=== PATIENT | female | born 1995 | race Caucasian/White ===

== ENCOUNTER → 2022-10-08 | Outpatient (CLI) | payer BC | END | disposition home or self-care (01) | LOC: LABWHC1 08:52 | PROVIDERS: ATTEND Obstetrics & Gynecology | DX: O03.9 Complete or unspecified spontaneous abortion without complication (principal); Z3A.00 Weeks of gestation of pregnancy not specified | CPT/HCPCS: 36415; 84702 ==

== ENCOUNTER 2023-06-24 15:27 | Outpatient (CLI) | payer BC ==
[2023-06-24 17:16] VITALS: BP 138/88; PULSE 75; RESP 18; TEMP 97.4
--- NOTE | 2023-07-04 07:11 | P.MSEPDOC ---
Presenting Problems - Arrival Data Date of Arrival on Unit: 06/24/23 Time of Arrival on Unit: 15:30 Mode of Transport: Ambulatory - Complaint OB-Reason for Admission/Chief Complaint: Possible Onset of Labor Comment: Pt states contrx started this am. Every 4 minutes while in route to hospital. Medical History - Information : 2 Para: 0 Term: 0 : 0 Abortions: Spontaneous or Elective: 1 Number of Living Children: 0 - Gestational Age Gestational Age by CHRISTIAN (wks/days): 38 Weeks and 0 Days Review of Systems - Review of Systems Constitutional: No problems Breast: No problems ENT: No problems Cardiovascular: No problems Respiratory: No problems Gastrointestinal: No problems Genitourinary: No problems Musculoskeletal: No problems Neurological: No problems Skin: No problems Vital Signs - Temperature Temperature: 97.4 F Temperature Source: Temporal Artery Scan - Pulse Right Brachial Pulse Rate: 75 Pulse Assessment Method: Automatic Cuff - Respirations Respiratory Rate: 18 Oxygen Delivery Method: Room Air O2 Sat by Pulse Oximetry: 100 - Blood Pressure Right Arm Blood Pressure: 138/88 Blood Pressure Mean: 104 Blood Pressure Source: Automatic Cuff Medical Screen Scoring - Cervical Exam Dilation (cm): 1 Effacement (%): 60 Station: -2 Membranes: Intact - Uterine Contractions Intensity: Mild Resting: Soft to palpation - Assessment - Baby A Baseline FHR: 125 Heart Rate - NICHD Category: Category I (Normal) NST: Reactive Physician Notification - Physician Notified Physician Notified Date: 06/24/23 Physician Notified Time: 16:55 Physician: Dr Rogers New Order Received: Yes - Notification Comment Comment: D/C Home Maternal Triage Index - Maternal Triage Index Presenting for scheduled procedure w/no complaint: No - Stat/Priority 1 Stat Priority 1: No - Urgent/Priority 2 Urgent Priority 2: No - Prompt/Priority 3 Prompt Priority 3: No - Non-Urgent/Priority 4 Non-Urgent Priority 4: Yes Criteria Met for Priority 4: Phoned Dr Rogers and orders received to send patient home Disposition - Disposition OB Disposition: Discharge to home Discharge Date: 06/24/23 Discharge Time: 16:50 I agree with the RN Medical Screening Exam: Yes Case reviewed; plan agreed upon as documented in EMR&OBIX.: Yes Diagnosis: FALSE LABOR AT OR AFTER 37 COMPLETED WEEKS OF GESTATION
== END 2023-06-24 16:58 | disposition home or self-care (01) ==
LOC: FBPOP 15:27
PROVIDERS: ATTEND Obstetrics & Gynecology
DX: O47.1 False labor at or after 37 completed weeks of gestation (principal); Z3A.38 38 weeks gestation of pregnancy; Z88.0 Allergy status to penicillin; Z88.1 Allergy status to other antibiotic agents; Z88.8 Allergy status to other drugs, medicaments and biological substances
CPT/HCPCS: 59025; 99213

== ENCOUNTER 2023-07-14 05:48 | Inpatient (IN) | payer BC ==
--- NOTE | 2023-07-13 20:44 | P.HPOB ---
History of Present Illness H&P Date: 07/13/23 Chief Complaint: Induction of labor This is a 28 y.o. female, 2, para 0, with an estimated date of confinement of 07/08/2023, estimated gestational age of 40-6/7 weeks, who presents for induction of labor due to postdates. She complains of irregular contractions. course has been uncomplicated. labs: Hemoglobin-13.2 Blood type-A+ Antibody screen-neg Rubella-immune Toxoplasma-neg RPR-NR HIV-NR Hepatits C-neg Hepatitis B surface antigen-neg GC/Chlamydia/Trich-neg 1 hr. 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 Works as [employer]. Review of Systems Constitutional: Denies chills, Denies fever Eyes: denies blurred vision, denies pain Ears, nose, mouth and throat: Denies headache, Denies sore throat Cardiovascular: Denies chest pain, Denies shortness of breath Respiratory: Denies cough Gastrointestinal: Reports abdominal pain (contractions) Genitourinary: Reports pelvic pain, Reports Musculoskeletal: Reports low back pain Integumentary: Denies pruritus, Denies rash Neurological: Denies numbness, Denies weakness Psychiatric: Denies anxiety, Denies depression Past Medical History Past Medical History: No Reported History History of Any Multi-Drug Resistant Organisms: None Reported Past Surgical History: No Surgical Hx Reported Past Anesthesia/Blood Transfusion Reactions: No Reported Reaction Past Psychological History: No Psychological Hx Reported Smoking Status: Never smoker Past Alcohol Use History: Occasional Past Drug Use History: None Reported - Past Family History Mother Family Medical History: No Reported History Medications and Allergies Home Medications Medication Instructions Recorded Confirmed Type Vit No.180/Iron/Folic 1 each PO 07/13/23 History [ Plus Tablet] Allergies Allergy/AdvReac Type Severity Reaction Status Date / Time azithromycin [From Zithromax] Allergy Rash/Hives Verified 06/24/23 15:42 clindamycin Allergy Rash/Hives Verified 06/24/23 15:42 Penicillins Allergy Rash/Hives Verified 06/24/23 15:42 Exam Osteopathic Statement: *. No significant issues noted on an osteopathic structural exam other than those noted in the History and Physical/Consult. HEENT: within normal limits Heart: regular rate and rhythm Lungs: clear to auscultation bilaterally Abdomen: soft, heart tones: 140's by doppler Cervix: 1.5 cm/60%/-2 Extremities: neg. Chente's Assessment and Plan (1) 40 weeks gestation of Status: Acute Code(s): Z3A.40 - 40 WEEKS GESTATION OF SNOMED Code(s): 33372166 Plan: Proceed with oxytocin induction of labor. Expectant management. Epidural anesthesia if desired.
[2023-07-14] MEDS ORDERED: OXYTOCIN 10 UNIT/ML 1 ML VIAL IM PRN (06:09)
[2023-07-14] MEDS ORDERED: CARBOPROST TROMETHAMINE 250 MCG/ML 1 ML AMP IM PRN (06:09)
[2023-07-14] MEDS ORDERED: LIDOCAINE 0.5% (PF) 5 MG/ML (50 ML SDV) SQ PRN (06:09)
[2023-07-14] MEDS ORDERED: METHYLERGONOVINE 0.2 MG/ML 1 ML AMP IM PRN (06:09)
[2023-07-14] MEDS ORDERED: OXYTOCIN 30 UNITS/500 ML NS 30 UNIT in SALINE 1 500ML.BAG IV SCH ×2 (06:09→15:45)
[2023-07-14] MEDS ORDERED: LIDOCAINE 1% (10MG/ML) FOR IV START INTRADERMA PRN (06:09)
[2023-07-14] MEDS ORDERED: TERBUTALINE 1 MG/ML VIAL SQ PRN (06:09)
[2023-07-14] MEDS ORDERED: miSOPROStoL 200 MCG TAB PO PRN (06:09)
[2023-07-14] MEDS ORDERED: TRANEXAMIC 1,000 MG/100ML-NACL 1,000 MG in EMPTY BAG 1 BAG IV PRN (06:09)
[2023-07-14 06:26] LABS: Basophils % (A) 0 %; Eosinophils # (A) 0.1 k/uL (0-0.7); Eosinophils % (A) 1 %; HCT 38.9 % (34.0-46.0); HGB 12.5 gm/dL (11.4-16.0); Lymphocytes # (A) 2.4 k/uL (1.0-4.8); Lymphocytes % (A) 24 %; MCHC 32.1 g/dL (31.0-37.0); MCV 77.8 fL (80.0-100.0); Mean Platelet Volume 10.4; Monocytes # (A) 0.4 k/uL (0-1.0); Monocytes % (A) 4 %; Neutrophils % (A) 69 %; Platelet Count 225 k/uL (150-450); RDW 15.3 % (11.5-15.5); WBC 10.2 k/uL (3.8-10.6)
[2023-07-14 06:28] VITALS: RESP 16
[2023-07-14] MEDS: OXYTOCIN 30 UNITS/500 ML NS 30 UNIT in SALINE 1 500ML.BAG IV SCH ×2 (06:30→06:45)
[2023-07-14] MEDS: LACTATED RINGERS 1,000 ML IV SCH ×2 (06:30→11:14)
[2023-07-14] MEDS ORDERED: fentaNYL (PF) 50 MCG/ML 5 ML AMP ONE (11:05)
[2023-07-14] MEDS ORDERED: SODIUM CHLORIDE 0.9% 250 ML BAG ONE (11:05)
[2023-07-14] MEDS ORDERED: ROPIVACAINE 5 MG/ML 30 ML VIAL ONE (11:05)
[2023-07-14] MEDS ORDERED: BENZOCAINE/MENTHOL SPRAY 1 GM/SPRAY AEROSOL TOPICAL PRN (15:32)
[2023-07-14] MEDS ORDERED: diphenhydrAMINE 50 MG CAP PO PRN (15:32)
[2023-07-14] MEDS ORDERED: ZOLPIDEM 5 MG TAB PO PRN (15:32)
[2023-07-14] MEDS ORDERED: LANOLIN CREAM 5 GM TUBE TOPICAL PRN (15:32)
[2023-07-14] MEDS ORDERED: SIMETHICONE 80 MG CHEWABLE PO PRN (15:32)
[2023-07-14] MEDS ORDERED: diphenhydrAMINE 25 MG CAP PO PRN (15:32)
--- NOTE | 2023-07-14 16:51 | P.PROBDLV ---
Vaginal Delivery Note - . Vaginal Delivery Note: The patient progressed to complete dilation after oxytocin induction of labor and artificial rupture of membranes with clear fluid noted. She did receive epidural anesthesia while in labor. Once reaching complete, she began pushing. Infant's head came to a crown. With one further push, the 's head delivered across the perineum in the right occiput anterior lie followed by the anterior shoulder. Nose and mouth were bulb suctioned and nuchal cord 2 was reduced around the 's head. With one remaining push, the remainder of the infant easily delivered and was placed on mother's abdomen. Cord was allowed to finish pulsating and then was clamped and cut. A viable male infant was noted with scores of 9 at 1 minute and 9 at 5 minutes and infant weight of 8 lbs. 14 oz. Placenta delivered shortly thereafter, intact, with a three-vessel cord. Uterus contracted fairly well after oxytocin was given and uterine massage was carried out. Inspection of the perineum revealed a second-degree perineal laceration towards the left side of the vagina. This area was anesthetized with 1% lidocaine and then sutured with 30 in 2-0 Vicryl suture in the usual multilayer fashion. Estimated blood loss is approximately 200 mL's. Both mother and infant are in stable condition.
[2023-07-14] MEDS: SENNOSIDES-DOCUSATE SODIUM 1 EACH TAB PO SCH (21:30)
[2023-07-14] MEDS: ACETAMINOPHEN TAB 325 MG TAB PO PRN (21:31)
[2023-07-15] MEDS: IBUPROFEN 600 MG TAB PO PRN ×2 (03:30→19:05)
[2023-07-15 06:03] LABS: Basophils % (A) 0 %; Eosinophils # (A) 0.1 k/uL (0-0.7); Eosinophils % (A) 0 %; HCT 31.4 % (34.0-46.0); HGB 10.3 gm/dL (11.4-16.0); Lymphocytes # (A) 2.2 k/uL (1.0-4.8); Lymphocytes % (A) 18 %; MCH 25.5 pg (25.0-35.0); MCHC 32.8 g/dL (31.0-37.0); MCV 77.7 fL (80.0-100.0); Mean Platelet Volume 10.6; Monocytes # (A) 0.6 k/uL (0-1.0); Monocytes % (A) 5 %; Neutrophils # (A) 9.1 k/uL (1.3-7.7); Neutrophils % (A) 75 %; Platelet Count 171 k/uL (150-450); RBC 4.04 m/uL (3.80-5.40); RDW 15.3 % (11.5-15.5); WBC 12.2 k/uL (3.8-10.6)
[2023-07-15] MEDS: SENNOSIDES-DOCUSATE SODIUM 1 EACH TAB PO SCH ×2 (08:03→19:34)
[2023-07-15] MEDS: ACETAMINOPHEN TAB 325 MG TAB PO PRN (08:03)
--- NOTE | 2023-07-15 08:45 | P.PNOBGVD ---
Subjective - Subjective Principal diagnosis: S/P NVD PPD #1 Interval history: Patient seen and examined. Denies nausea, vomiting, chest pain, shortness of breath or calf pain. Patient reports: Reports appetite normal, Reports voiding normally, Reports pain well controlled, Reports ambulating normally : doing well Objective - Latest Vital Signs Latest vital signs: Vital Signs Temp Pulse Resp BP Pulse Ox 07/15/23 08:00 98.7 F 67 16 117/70 07/15/23 03:44 98.7 F 60 16 106/65 98 07/15/23 00:00 98.8 F 67 16 122/74 98 07/14/23 21:00 99.4 F 93 16 122/84 98 07/14/23 17:30 97.8 F 81 16 132/58 07/14/23 16:55 75 16 133/76 07/14/23 16:25 71 16 134/69 07/14/23 16:10 71 16 128/64 07/14/23 15:55 78 16 129/73 07/14/23 15:40 76 16 129/67 07/14/23 15:25 98.9 F 90 16 132/74 Intake and Output 07/14/23 07/15/23 07/15/23 22:59 06:59 14:59 Output Total 500 Balance -500 Output: Estimated Blood Loss 200 Output, Quantitative 300 Blood Loss Other: # Voids 1 1 1 - Exam Lungs: bilateral: normal Chest: Normal S1, Normal S2 Extremities: Present: normal Abdomen: Present: normal appearance, soft Uterus: Present: normal, firm - Labs Labs: Abnormal Lab Results - Last 24 Hours (Table) 07/15/23 Range/Units 05:23 WBC 12.2 H (3.8-10.6) k/uL Hgb 10.3 L (11.4-16.0) gm/dL Hct 31.4 L (34.0-46.0) % MCV 77.7 L (80.0-100.0) fL Neutrophils # 9.1 H (1.3-7.7) k/uL Assessment and Plan (1) Status post normal vaginal delivery Current Visit: Yes Status: Acute Code(s): [id number] - SNOMED Code(s): 433866412 Plan: 1. cont pp care
[2023-07-16] MEDS: SENNOSIDES-DOCUSATE SODIUM 1 EACH TAB PO SCH (08:26)
[2023-07-16] MEDS: ACETAMINOPHEN TAB 325 MG TAB PO PRN (08:30)
[2023-07-16 08:33] VITALS: BP 117/82; PULSE 108; TEMP 98.5
--- NOTE | 2023-07-16 08:34 | P.DS ---
Providers Date of admission: 07/14/23 05:48 Expected date of discharge: 07/16/23 Attending physician: Mary Crocker Primary care physician: Stated None - Discharge Diagnosis(es) (1) Status post normal vaginal delivery Current Visit: Yes Status: Acute Hospital Course: Patient underwent a normal vaginal delivery. course has been uneventful. She denies nausea, vomiting, chest pain, shortness of breath or any calf pain. She'll be discharged home day #2 in stable condition to follow-up with Dr. Crocker and 6 weeks. Plan - Discharge Summary New Discharge Prescriptions: New Ibuprofen [Motrin] 600 mg PO Q6HR PRN #30 tab PRN Reason: Mild Pain Or Fever >= 100.5 No Action Vit No.180/Iron/Folic [ Plus Tablet] 1 each PO DAILY Discharge Medication List Vit No.180/Iron/Folic [ Plus Tablet] 1 each PO DAILY 07/13/23 [History] Ibuprofen [Motrin] 600 mg PO Q6HR PRN #30 tab 07/15/23 [Rx] Follow up Appointment(s)/Referral(s): Mary Crocker DO [Doctor of Osteopathic Medicine] - 08/24/23 3:30 pm Discharge Disposition: HOME SELF-CARE
== END 2023-07-16 11:20 | disposition home or self-care (01) | DRG 807 ==
LOC: 4FBP 05:48
PROVIDERS: ADMIT Obstetrics & Gynecology; ATTEND Obstetrics & Gynecology
PROC: 10E0XZZ Delivery of Products of Conception, External Approach (ICD-10-PCS; principal; 2023-07-14)
PROC: 0KQM0ZZ Repair Perineum Muscle, Open Approach (ICD-10-PCS; 2023-07-14)
PROC: 10907ZC Drainage of Amniotic Fluid, Therapeutic from Products of Conception, Via Natural or Artificial Opening (ICD-10-PCS; 2023-07-14)
PROC: 3E033VJ Introduction of Other Hormone into Peripheral Vein, Percutaneous Approach (ICD-10-PCS; 2023-07-14)
DX: O48.0 Post-term pregnancy (principal); O69.81X0 Labor and delivery complicated by cord around neck, without compression, not applicable or unspecified; O70.1 Second degree perineal laceration during delivery; Z88.0 Allergy status to penicillin; Z3A.40 40 weeks gestation of pregnancy; Z37.0 Single live birth
CPT/HCPCS: 85025; 86850; 86900; 86901